=== PATIENT | female | born 2000 | race African-American/Black ===

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

== ENCOUNTER 2020-01-10 00:08 | Emergency (ER) | payer OTHER ==
[~2020-01-10] VITALS: Ht 167.6 cm; Wt 81.6 kg
[2020-01-10] MEDS ORDERED: ONDANSETRON HCL 4 MG/2 ML VIAL ONE ×2 (00:49→02:53)
[2020-01-10] MEDS ORDERED: MORPHINE SULFATE 4 MG/ML SYR/VIAL ONE (00:49)
[2020-01-10] MEDS ORDERED: MORPHINE SULFATE 4 MG/ML SYR/VIAL IV ONE ×2 (01:00→01:45)
[2020-01-10] MEDS ORDERED: ONDANSETRON HCL 4 MG/2 ML VIAL IV ONE ×3 (01:00→03:45)
[2020-01-10] MEDS ORDERED: KETAMINE 50mg/ML 10ml Vial (500mg/10ml) IV ONE ×2 (02:00→03:45)
[2020-01-10 05:13] VITALS: BP 112/79
[2020-01-10] MEDS ORDERED: PROMETHAZINE HCL 25 MG/ML 1ML ONE (05:13)
[2020-01-10] MEDS ORDERED: PROMETHAZINE HCL 25 MG/ML 1ML IV ONE ×2 (05:15)
== END 2020-01-10 05:22 | disposition home or self-care (01) ==
LOC: ER 00:08
DX: S43.004A Unspecified dislocation of right shoulder joint, initial encounter (principal); X58.XXXA Exposure to other specified factors, initial encounter; Y93.89 Activity, other specified; Y92.89 Other specified places as the place of occurrence of the external cause; Y99.8 Other external cause status
CPT/HCPCS: 23650; 73020; 73030; 96374; 96375; 96376; 99152; 99285; J2270; J2405; J2550